=== PATIENT | female | born 1975 | race Two or more races ===

== ENCOUNTER 2017-03-09 05:05 | Emergency (ER) | payer MEDICAID, OTHER, SELFPAY ==
[~2017-03-09] VITALS: Ht 152.4 cm; Wt 64.8 kg
[2017-03-09 05:08] VITALS: BP 136/85
[2017-03-09] MEDS ORDERED: DIAZEPAM 5 MG TABLET ONE (05:53)
[2017-03-09 05:54] LABS: MICROSCOPIC INDICATED
[2017-03-09] MEDS ORDERED: KETOROLAC 30 MG/1 ML ONE (05:54)
[2017-03-09] MEDS ORDERED: HYDROcodone/APAP 5/325 TABLET ONE (05:54)
[2017-03-09 05:55] LABS: HCG UR SG 1.036 (1.003-1.030)
[2017-03-09] MEDS ORDERED: HYDROcodone/APAP 5/325 TABLET PO ONE (06:00)
[2017-03-09] MEDS ORDERED: KETOROLAC 30 MG/1 ML IM ONE (06:00)
[2017-03-09] MEDS ORDERED: DIAZEPAM 5 MG TABLET PO ONE (06:00)
[2017-03-09 06:26] LABS: CULTURE INDICATED? NO
== END 2017-03-09 07:11 | disposition home or self-care (01) ==
LOC: ED 06:25
DX: S39.012A Strain of muscle, fascia and tendon of lower back, initial encounter (principal); X58.XXXA Exposure to other specified factors, initial encounter; Y93.01 Activity, walking, marching and hiking; Y92.89 Other specified places as the place of occurrence of the external cause; Y99.8 Other external cause status
CPT/HCPCS: 72110; 81001; 81025; 96372; 99285; J1885

== ENCOUNTER 2017-08-21 16:23 | Emergency (ER) | payer OTHER ==
[~2017-08-21] VITALS: Ht 152.4 cm; Wt 59.3 kg
[2017-08-21 16:29] VITALS: BP 130/81
[2017-08-21] MEDS ORDERED: DIAZEPAM 5 MG TABLET ONE (17:20)
[2017-08-21] MEDS ORDERED: KETOROLAC 30 MG/1 ML ONE (17:20)
[2017-08-21] MEDS ORDERED: KETOROLAC 30 MG/1 ML IM ONE (17:30)
[2017-08-21] MEDS ORDERED: DIAZEPAM 5 MG TABLET PO ONE (17:30)
== END 2017-08-21 18:59 | disposition home or self-care (01) ==
LOC: ED 17:00
DX: M54.12 Radiculopathy, cervical region (principal)
CPT/HCPCS: 72125; 99284

== ENCOUNTER 2019-09-22 07:23 | Emergency (ER) | payer OTHER ==
[~2019-09-22] VITALS: Ht 152.4 cm; Wt 64.3 kg
--- NOTE | 2019-09-22 08:19 | NUR ---
PT AMBULATORY WITH STEADY GAIT TO ROOM AT THIS TIME.
[2019-09-22] MEDS ORDERED: HYDROmorphone 2 MG/ML, 1ML IM ONE (08:30)
[2019-09-22] MEDS ORDERED: METHOCARBAMOL 750 MG TABLET PO ONE (08:30)
--- NOTE | 2019-09-22 08:40 | NUR ---
Avinash jonas back from triage with chief complaint of left shoulder pain since wednesday.
[2019-09-22] MEDS ORDERED: HYDROmorphone 2 MG/ML, 1ML ONE (08:43)
[2019-09-22] MEDS ORDERED: METHOCARBAMOL 750 MG TABLET ONE (08:43)
--- NOTE | 2019-09-22 09:40 | NUR ---
PT STATES "IT FEELS BETTER THAN YESTERDAY. I CAN STILL FEEL IT, JUST NOT LIKE YESTERDAY." ABRAM.
--- NOTE | 2019-09-22 09:54 | NUR ---
PT AMBULATORY WITH STEADY GAIT TO BATHROOM. ABRAM
[2019-09-22 10:29] VITALS: BP 145/82
== END 2019-09-22 10:32 | disposition home or self-care (01) ==
LOC: ED 08:23
DX: S29.012A Strain of muscle and tendon of back wall of thorax, initial encounter (principal); M25.511 Pain in right shoulder; F17.200 Nicotine dependence, unspecified, uncomplicated; Z90.49 Acquired absence of other specified parts of digestive tract; X58.XXXA Exposure to other specified factors, initial encounter; Y93.89 Activity, other specified; Y92.89 Other specified places as the place of occurrence of the external cause; Y99.8 Other external cause status
CPT/HCPCS: 96372; 99283; J1170